=== PATIENT | male | born 1965 | race Hispanic/Latino ===

== ENCOUNTER 2021-04-29 09:49 | Emergency (ER) | payer OTHER ==
[~2021-04-29] VITALS: Ht 167.6 cm; Wt 104.3 kg
[~2021-04-29 09:49] MED LIST: ACET1TAB25 PO
[2021-04-29] MEDS ORDERED: MORPHINE 2 MG SYG IVP ONE (10:30)
[2021-04-29 10:45] LABS: BASOPHILS % (AUTO) 0.8 % (0.0-5.0); EOSINOPHILS % (AUTO) 3.7 % (0.0-8.0); HEMATOCRIT 30.6 % (42-54); LYMPHOCYTES % (AUTO) 23.1 % (21.0-51.0); MEAN CORPUSCULAR HEMOGLOBIN 33.5 pg (27.0-33.0); MEAN CORPUSCULAR HGB CONC 34.6 g/dL (32.0-36.0); MEAN CORPUSCULAR VOLUME 96.8 fL (79-99); MONOCYTES % (AUTO) 17.7 % (3.0-13.0); NEUTROPHILS % (AUTO) 53.9 % (40.0-77.0); PLATELET COUNT (AUTO) 94 K/uL (130-400); RED BLOOD CELL COUNT(AUTO) 3.16 MIL/uL (4.50-6.20); RED CELL DISTRIBUTION WIDTH 14.1 % (11.0-15.5); WHITE BLOOD COUNT (AUTO) 5.2 K/uL (4.8-10.8)
[2021-04-29 10:58] LABS: ALBUMIN 1.6 g/dL (3.5-5.0); BILIRUBIN,TOTAL 1.4 mg/dL (0.2-1.0); CREATININE 0.9 mg/dL (0.5-1.5); POTASSIUM 4.8 mmol/L (3.5-5.1); TOTAL PROTEIN, SERUM 7.1 g/dL (6.0-8.3)
[2021-04-29 11:25] LABS: APPEARANCE,URINE Clear (CLEAR); BILIRUBIN,URINE Small (NEGATIVE); COLOR,URINE Dark Yellow (YELLOW); GLUCOSE, URINE (UA) Negative (NEGATIVE); KETONES,URINE Trace mg/dL (NEGATIVE); LEUKOCYTE ESTERASE ,URINE Trace (NEGATIVE); NITRATE,URINE Negative (NEGATIVE); OCCULT BLOOD,URINE Negative (NEGATIVE); PH,URINE 6.5 (5.0-8.0); PROTEIN,URINE Trace mg/dL (NEGATIVE)
[2021-04-29 11:35] LABS: BACTERIA,URINE Rare /HPF (None Seen); MUCUS,URINE Rare LPF (None Seen); RBC,URINE 0-1 /HPF (0-1); SQUAMOUS EPITHELIAL CELL,UR Rare /HPF (0-2); WBC,URINE 0-1 /HPF (0-1)
[2021-04-29] MEDS ORDERED: IOHEXOL-350 75 ML VIAL IV ONE (11:45)
[2021-04-29] MEDS ORDERED: METR-172 PO (13:20)
[2021-04-29] MEDS ORDERED: CIPR-278 PO (13:20)
[2021-04-29] MEDS ORDERED: HYOS0.124 SL (13:21)
[2021-04-29] MEDS ORDERED: METRONIDAZOLE 500 MG TABLET PO SCH (13:30)
[2021-04-29] MEDS ORDERED: LEVOFLOXACIN 500 MG TABLET PO SCH (13:30)
[2021-04-29 14:05] VITALS: BP 135/75
== END 2021-04-29 15:13 | disposition home or self-care (01) ==
LOC: EDH 09:49
DX: K57.30 Diverticulosis of large intestine without perforation or abscess without bleeding (principal); R18.8 Other ascites; I10 Essential (primary) hypertension; Z98.890 Other specified postprocedural states
CPT/HCPCS: 36415; 74177; 80053; 81001; 83690; 84484; 85025; 93005; 96374; 99285; Q9967

== ENCOUNTER 2021-05-03 09:13 | Emergency (ER) | payer OTHER ==
[~2021-05-03] VITALS: Ht 165.1 cm; Wt 97.5 kg
[~2021-05-03 09:13] MED LIST changes: +CIPR-278 PO; +HYOS0.124 SL; +METR-172 PO
[2021-05-03 09:40] LABS: HEMATOCRIT 31.5 % (42-54); MEAN CORPUSCULAR HEMOGLOBIN 33.2 pg (27.0-33.0); MEAN CORPUSCULAR HGB CONC 34.6 g/dL (32.0-36.0); PLATELET COUNT (AUTO) 114 K/uL (130-400); RED BLOOD CELL COUNT(AUTO) 3.28 MIL/uL (4.50-6.20); RED CELL DISTRIBUTION WIDTH 13.8 % (11.0-15.5)
[2021-05-03 09:48] LABS: CREATININE 0.9 mg/dL (0.5-1.5)
[2021-05-03 09:53] LABS: ALBUMIN 1.7 g/dL (3.5-5.0); BILIRUBIN,TOTAL 2.4 mg/dL (0.2-1.0); TOTAL PROTEIN, SERUM 7.7 g/dL (6.0-8.3)
[2021-05-03] MEDS ORDERED: HYDROCODONE/ACETAMINOPHEN 10/325 MG TAB PO ONE (10:00)
[2021-05-03 10:02] LABS: APPEARANCE,URINE CLEAR (CLEAR); BILIRUBIN,URINE MODERATE (NEGATIVE); GLUCOSE, URINE (UA) NEGATIVE (NEGATIVE); KETONES,URINE 5 mg/dL (NEGATIVE); LEUKOCYTE ESTERASE ,URINE NEGATIVE (NEGATIVE); NITRATE,URINE POSITIVE (NEGATIVE); OCCULT BLOOD,URINE NEGATIVE (NEGATIVE); PROTEIN,URINE 30 mg/dL (NEGATIVE)
[2021-05-03 10:04] LABS: COLOR,URINE ORANGE (YELLOW)
[2021-05-03] MEDS ORDERED: ALBUMIN (HUMAN) 25% 200 ML IV ONE (10:05)
[2021-05-03 10:11] LABS: INR 1.53 (0.85-1.15)
[2021-05-03 10:11] LABS: BACTERIA,URINE Rare /HPF (None Seen); MUCUS,URINE Moderate LPF (None Seen); RBC,URINE 0-1 /HPF (0-1); SQUAMOUS EPITHELIAL CELL,UR Rare /HPF (0-2); WBC,URINE 0-1 /HPF (0-1)
[2021-05-03 10:12] LABS: PARTIAL THROMBOPLASTIN TIME 33.9 SEC (26.3-35.5)
[2021-05-03 10:17] LABS: BASOPHILS % (MANUAL) 2 % (0-2); EOSINOPHILS % (MANUAL) 3 % (1-6); LYMPHOCYTES % (MANUAL) 27 % (22-44); MAN.DIFF COMMENT-IMPRESSION MANUAL DIFFERENTIAL; MONOCYTES % (MANUAL) 10 % (2-9); PLATELET MORPHOLOGY COMMENT SLIGHTLY DECREASED; SEGMENTED NEUTROPHILS % 58 % (40-70)
[2021-05-03 12:37] VITALS: BP 114/69
[2021-05-03 13:59] LABS: APPEARANCE BODY FLUID CLEAR (CLEAR); BODY FLUID RBC 124 /cu. mm.; BODY FLUID WBC 134 /cu. mm.; COLOR,BODY FLUID YELLOW (LT YELLOW); SPECIMENTYPE,BODY FLUID ASCITES; TOTAL VOLUME,BODY FLUID 6200 mL
[2021-05-03 14:04] LABS: BF LYMPHOCYTE 28 %; BF MESOTHELIAL 55 %; BF MONOCYTE 13 %
== END 2021-05-03 12:36 | disposition home or self-care (01) ==
LOC: EDH 09:13
DX: R18.8 Other ascites (principal); K74.60 Unspecified cirrhosis of liver; I10 Essential (primary) hypertension; E11.9 Type 2 diabetes mellitus without complications
CPT/HCPCS: 36415; 49083; 71045; 80053; 81001; 85025; 85610; 85730; 87071; 87088; 87205; 89051; 96365; 99285; C1729; P9046

== ENCOUNTER 2021-05-07 03:44 | Emergency (ER) | payer OTHER ==
[~2021-05-07] VITALS: Ht 165.1 cm; Wt 95.3 kg
[2021-05-07] MEDS ORDERED: HYDROCODONE/ACETAMINOPHEN 10/325 MG TAB PO ONE (04:00)
[2021-05-07 04:35] LABS: BASOPHILS % (AUTO) 0.8 % (0.0-5.0); EOSINOPHILS % (AUTO) 4.8 % (0.0-8.0); HEMATOCRIT 29.5 % (42-54); LYMPHOCYTES % (AUTO) 25.7 % (21.0-51.0); MEAN CORPUSCULAR HEMOGLOBIN 33.8 pg (27.0-33.0); MEAN CORPUSCULAR HGB CONC 34.9 g/dL (32.0-36.0); MEAN CORPUSCULAR VOLUME 96.7 fL (79-99); MONOCYTES % (AUTO) 15.9 % (3.0-13.0); NEUTROPHILS % (AUTO) 52.2 % (40.0-77.0); PLATELET COUNT (AUTO) 99 K/uL (130-400); RED BLOOD CELL COUNT(AUTO) 3.05 MIL/uL (4.50-6.20); RED CELL DISTRIBUTION WIDTH 14.2 % (11.0-15.5); WHITE BLOOD COUNT (AUTO) 6.5 K/uL (4.8-10.8)
[2021-05-07 04:46] LABS: CARBON DIOXIDE 22 mmol/L (21-32); CHLORIDE 106 mmol/L (101-111); GLOMERULAR FILTR. RATE CALC 83 mL/min (>60); GLUCOSE,RANDOM 134 mg/dL (70-105); POTASSIUM 3.4 mmol/L (3.5-5.1); SODIUM SERUM 137 mmol/L (136-145); UREA NITROGEN, BLOOD 11 mg/dL (7-18)
[2021-05-07 04:50] LABS: ALANINE AMINOTRANSFERASE 33 U/L (12-78); ALBUMIN 1.9 g/dL (3.5-5.0); ALCOHOL, BLOOD < 3 mg/dL (0-10); ASPARTATE AMINOTRANSFERASE 54 U/L (10-37); BILIRUBIN,TOTAL 2.4 mg/dL (0.2-1.0); TOTAL PROTEIN, SERUM 6.9 g/dL (6.0-8.3)
[2021-05-07] MEDS ORDERED: FURO-152 PO (05:40)
[2021-05-07] MEDS ORDERED: ACET1TAB25 PO (05:40)
[2021-05-07] MEDS ORDERED: MORPHINE 4 MG SYG IM ONE (06:00)
[2021-05-07 07:50] VITALS: BP 103/68
== END 2021-05-07 07:56 | disposition home or self-care (01) ==
LOC: EDH 03:44
DX: R18.8 Other ascites (principal); K74.60 Unspecified cirrhosis of liver; I10 Essential (primary) hypertension
CPT/HCPCS: 36415; 80053; 85025

== ENCOUNTER 2021-05-09 08:43 | Emergency (ER) | payer OTHER ==
[~2021-05-09] VITALS: Ht 165.1 cm; Wt 97.5 kg
[~2021-05-09 08:43] MED LIST changes: +FURO-152 PO
[2021-05-09 09:41] LABS: BASOPHILS % (AUTO) 0.2 % (0.0-5.0); EOSINOPHILS % (AUTO) 0.7 % (0.0-8.0); HEMATOCRIT 29.7 % (42-54); LYMPHOCYTES % (AUTO) 7.6 % (21.0-51.0); MEAN CORPUSCULAR HEMOGLOBIN 33.2 pg (27.0-33.0); MEAN CORPUSCULAR HGB CONC 33.7 g/dL (32.0-36.0); MEAN CORPUSCULAR VOLUME 98.7 fL (79-99); MONOCYTES % (AUTO) 4.7 % (3.0-13.0); NEUTROPHILS % (AUTO) 86.3 % (40.0-77.0); PLATELET COUNT (AUTO) 86 K/uL (130-400); RED BLOOD CELL COUNT(AUTO) 3.01 MIL/uL (4.50-6.20); RED CELL DISTRIBUTION WIDTH 14.3 % (11.0-15.5); WHITE BLOOD COUNT (AUTO) 9.5 K/uL (4.8-10.8)
[2021-05-09 09:58] LABS: ALBUMIN 1.9 g/dL (3.5-5.0); BILIRUBIN,TOTAL 3.5 mg/dL (0.2-1.0); CREATININE 1.3 mg/dL (0.5-1.5); POTASSIUM 3.5 mmol/L (3.5-5.1); TOTAL PROTEIN, SERUM 6.9 g/dL (6.0-8.3)
[2021-05-09 11:30] VITALS: BP 110/52
== END 2021-05-09 11:47 | disposition home or self-care (01) ==
LOC: EDH 08:43
DX: R18.8 Other ascites (principal); I10 Essential (primary) hypertension; Z79.899 Other long term (current) drug therapy
CPT/HCPCS: 36415; 49082; 76705; 80053; 85025

== ENCOUNTER 2021-05-17 11:30 | Emergency (ER) | payer OTHER ==
[~2021-05-17] VITALS: Ht 165.1 cm; Wt 108.9 kg
[2021-05-17 12:15] LABS: BASOPHILS % (AUTO) 0.8 % (0.0-5.0); EOSINOPHILS % (AUTO) 5.3 % (0.0-8.0); HEMATOCRIT 29.3 % (42-54); LYMPHOCYTES % (AUTO) 25.8 % (21.0-51.0); MEAN CORPUSCULAR HEMOGLOBIN 33.1 pg (27.0-33.0); MEAN CORPUSCULAR HGB CONC 34.5 g/dL (32.0-36.0); MEAN CORPUSCULAR VOLUME 96.1 fL (79-99); MONOCYTES % (AUTO) 10.5 % (3.0-13.0); NEUTROPHILS % (AUTO) 56.8 % (40.0-77.0); PLATELET COUNT (AUTO) 91 K/uL (130-400); RED BLOOD CELL COUNT(AUTO) 3.05 MIL/uL (4.50-6.20); RED CELL DISTRIBUTION WIDTH 13.7 % (11.0-15.5); WHITE BLOOD COUNT (AUTO) 5.3 K/uL (4.8-10.8)
[2021-05-17] MEDS ORDERED: DICYCLOMINE 20MG (10MG/ML) AMP IM SCH (12:24)
[2021-05-17] MEDS ORDERED: HYDROCODONE/ACETAMINOPHEN 10/325 MG TAB PO SCH (12:30)
[2021-05-17 12:31] LABS: ALBUMIN 1.8 g/dL (3.5-5.0); BILIRUBIN,TOTAL 2.6 mg/dL (0.2-1.0); CREATININE 1.9 mg/dL (0.5-1.5); POTASSIUM 3.1 mmol/L (3.5-5.1); TOTAL PROTEIN, SERUM 7.5 g/dL (6.0-8.3)
[2021-05-17 12:47] LABS: INR 1.48 (0.85-1.15); PROTHROMBIN TIME 15.6 SEC (9.6-11.6)
[2021-05-17 12:48] LABS: PARTIAL THROMBOPLASTIN TIME 34.2 SEC (26.3-35.5)
[2021-05-17] MEDS ORDERED: POTASSIUM BICARB/CIT AC 25 MEQ TABLET.EFF PO SCH (13:00)
[2021-05-17 15:22] VITALS: BP 125/70
== END 2021-05-17 15:30 | disposition home or self-care (01) ==
LOC: EDH 11:30
DX: R18.8 Other ascites (principal); K74.60 Unspecified cirrhosis of liver; E87.6 Hypokalemia; D64.9 Anemia, unspecified; E11.9 Type 2 diabetes mellitus without complications; I10 Essential (primary) hypertension; Z79.899 Other long term (current) drug therapy
CPT/HCPCS: 36415; 49083; 80053; 83690; 84484; 85025; 85610; 85730; 93005; 96372; 99285; C1729; J0500

== ENCOUNTER 2021-05-28 08:15 | Emergency (ER) | payer OTHER ==
[~2021-05-28] VITALS: Ht 165.1 cm; Wt 90.7 kg
[2021-05-28] MEDS ORDERED: ONDANSETRON 4MG INJ IVP SCH (08:30)
[2021-05-28] MEDS ORDERED: MORPHINE 2 MG SYG IVP SCH (08:30)
[2021-05-28] MEDS ORDERED: 0.9%NACL 1000ML 500 ML IV SCH (08:30)
[2021-05-28 08:39] LABS: BASOPHILS % (AUTO) 1.2 % (0.0-5.0); EOSINOPHILS % (AUTO) 7.2 % (0.0-8.0); HEMATOCRIT 30.3 % (42-54); LYMPHOCYTES % (AUTO) 32.3 % (21.0-51.0); MEAN CORPUSCULAR HEMOGLOBIN 33.4 pg (27.0-33.0); MEAN CORPUSCULAR VOLUME 98.4 fL (79-99); MONOCYTES % (AUTO) 15.8 % (3.0-13.0); PLATELET COUNT (AUTO) 108 K/uL (130-400); RED BLOOD CELL COUNT(AUTO) 3.08 MIL/uL (4.50-6.20); RED CELL DISTRIBUTION WIDTH 14.6 % (11.0-15.5); WHITE BLOOD COUNT (AUTO) 5.7 K/uL (4.8-10.8)
[2021-05-28] MEDS ORDERED: MORPHINE 4 MG SYG ONE (08:40)
[2021-05-28 08:45] LABS: INR 1.36 (0.85-1.15); PROTHROMBIN TIME 14.4 SEC (9.6-11.6)
[2021-05-28 08:47] LABS: ALBUMIN 1.8 g/dL (3.5-5.0); BILIRUBIN,TOTAL 2.2 mg/dL (0.2-1.0); CREATININE 1.3 mg/dL (0.5-1.5); TOTAL PROTEIN, SERUM 8.3 g/dL (6.0-8.3)
[2021-05-28 10:02] LABS: APPEARANCE,URINE Clear (CLEAR); BILIRUBIN,URINE Small (NEGATIVE); COLOR,URINE Dark Yellow (YELLOW); GLUCOSE, URINE (UA) Negative (NEGATIVE); KETONES,URINE Negative (NEGATIVE); LEUKOCYTE ESTERASE ,URINE Trace (NEGATIVE); NITRATE,URINE Negative (NEGATIVE); OCCULT BLOOD,URINE Negative (NEGATIVE); PH,URINE 6.5 (5.0-8.0); PROTEIN,URINE POS 1+ mg/dL (NEGATIVE)
[2021-05-28] MEDS ORDERED: ALBUMIN (HUMAN) 25% 200 ML IV ONE (10:23)
[2021-05-28 10:34] LABS: BACTERIA,URINE Few /HPF (None Seen); RBC,URINE 0-1 /HPF (0-1); SQUAMOUS EPITHELIAL CELL,UR Rare /HPF (0-2)
[2021-05-28 11:40] VITALS: BP 106/70
[2021-05-28 14:11] LABS: APPEARANCE BODY FLUID CLEAR (CLEAR); COLOR,BODY FLUID YELLOW (LT YELLOW); SPECIMENTYPE,BODY FLUID ASCITES; TOTAL VOLUME,BODY FLUID 5500 mL
[2021-05-28 14:12] LABS: BODY FLUID RBC 158 /cu. mm.; BODY FLUID WBC 194 /cu. mm.
[2021-05-28 14:19] LABS: BF LYMPHOCYTE 91 %; BF MONOCYTE 5 %
== END 2021-05-28 12:54 | disposition home or self-care (01) ==
LOC: EDH 08:15
DX: R18.8 Other ascites (principal); K74.60 Unspecified cirrhosis of liver; I10 Essential (primary) hypertension; E11.9 Type 2 diabetes mellitus without complications; Z79.899 Other long term (current) drug therapy
CPT/HCPCS: 36415; 49083; 80053; 81001; 82150; 84484; 85025; 85610; 87071; 87205; 89051; 93005; 96361 ×2; 96365; 96375; 99285; C1729; J2270; J2405; J7030; P9046

== ENCOUNTER 2021-06-21 09:37 | Emergency (ER) | payer OTHER ==
[~2021-06-21] VITALS: Ht 165.1 cm; Wt 80.7 kg
[2021-06-21 10:38] LABS: APPEARANCE,URINE Clear (CLEAR); BILIRUBIN,URINE Small (NEGATIVE); COLOR,URINE Dark Yellow (YELLOW); GLUCOSE, URINE (UA) Negative (NEGATIVE); KETONES,URINE Trace mg/dL (NEGATIVE); LEUKOCYTE ESTERASE ,URINE Trace (NEGATIVE); NITRATE,URINE Negative (NEGATIVE); OCCULT BLOOD,URINE Negative (NEGATIVE); PROTEIN,URINE Trace mg/dL (NEGATIVE)
[2021-06-21 10:45] LABS: BACTERIA,URINE Few /HPF (None Seen); RBC,URINE 0-1 /HPF (0-1); SQUAMOUS EPITHELIAL CELL,UR Rare /HPF (0-2)
[2021-06-21 10:46] LABS: AMPHET/METH SCREEN,URINE NEGATIVE (NEGATIVE); BARBITURATE SCREEN, URINE NEGATIVE (NEGATIVE); BENZODIAZEPINES SCREEN,URINE NEGATIVE (NEGATIVE); CANNABINOID SCREEN,URINE NEGATIVE (NEGATIVE); COCAINE SCREEN,URINE NEGATIVE (NEGATIVE); OPIATE SCREEN,URINE NEGATIVE (NEGATIVE); PHENCYCLIDINE SCREEN,URINE NEGATIVE (NEGATIVE)
[2021-06-21 10:55] LABS: BASOPHILS % (AUTO) 0.8 % (0.0-5.0); EOSINOPHILS % (AUTO) 9.7 % (0.0-8.0); HEMATOCRIT 27.6 % (42-54); LYMPHOCYTES % (AUTO) 19.2 % (21.0-51.0); MEAN CORPUSCULAR HEMOGLOBIN 33.3 pg (27.0-33.0); MEAN CORPUSCULAR HGB CONC 34.1 g/dL (32.0-36.0); MEAN CORPUSCULAR VOLUME 97.9 fL (79-99); MONOCYTES % (AUTO) 12.7 % (3.0-13.0); NEUTROPHILS % (AUTO) 57.2 % (40.0-77.0); PLATELET COUNT (AUTO) 70 K/uL (130-400); RED BLOOD CELL COUNT(AUTO) 2.82 MIL/uL (4.50-6.20); RED CELL DISTRIBUTION WIDTH 15.4 % (11.0-15.5)
[2021-06-21] MEDS ORDERED: ORPHENADRINE CITRATE 30 MG/ML ML IV ONE (11:00)
[2021-06-21] MEDS ORDERED: KETOROLAC 30MG VIAL (30MG/ML) IV ONE (11:00)
[2021-06-21] MEDS ORDERED: 0.9%NACL 1000ML 1,000 ML IV ONE (11:00)
[2021-06-21] MEDS ORDERED: ONDANSETRON 4MG INJ IVP ONE (11:00)
[2021-06-21 11:18] LABS: POTASSIUM 3.4 mmol/L (3.5-5.1)
[2021-06-21 11:22] LABS: ALBUMIN 2.2 g/dL (3.5-5.0); BILIRUBIN,TOTAL 2.1 mg/dL (0.2-1.0); TOTAL PROTEIN, SERUM 7.7 g/dL (6.0-8.3)
[2021-06-21] MEDS ORDERED: ORPH-43 PO (12:45)
[2021-06-21] MEDS ORDERED: BENZ-39 PO (12:45)
[2021-06-21] MEDS ORDERED: MELO7.5T12 PO (12:45)
[2021-06-21] MEDS ORDERED: ACETAMINOPHEN 500 MG TABLET PO ONE (13:00)
[2021-06-21] MEDS ORDERED: MAG/ALUM/SIMETH 30 ML UDCUP PO ONE (13:00)
[2021-06-21] MEDS ORDERED: LIDOCAINE HCL 2% VISCOUS 15 ML UDCUP PO ONE (13:00)
[2021-06-21 13:31] VITALS: BP 138/83
== END 2021-06-21 13:41 | disposition home or self-care (01) ==
LOC: EDH 09:37
DX: S39.012A Strain of muscle, fascia and tendon of lower back, initial encounter (principal); J11.1 Influenza due to unidentified influenza virus with other respiratory manifestations; E86.9 Volume depletion, unspecified; R18.8 Other ascites; Z20.822 Contact with and (suspected) exposure to COVID-19; E11.9 Type 2 diabetes mellitus without complications; I10 Essential (primary) hypertension; Z79.1 Long term (current) use of non-steroidal anti-inflammatories (NSAID); Z79.899 Other long term (current) drug therapy; X58.XXXA Exposure to other specified factors, initial encounter; Y93.89 Activity, other specified; Y92.89 Other specified places as the place of occurrence of the external cause; Y99.8 Other external cause status
CPT/HCPCS: 36415; 71045; 74176; 80053; 80305; 81001; 82140; 83605; 83690; 84484; 85025; 87088; 87635; 87804 ×2; 87880; 93005; 96361; 96374; 96375; 99285; C9803; J1885; J2360; J2405; J7030

== ENCOUNTER 2021-07-01 10:39 | Emergency (ER) | payer OTHER ==
[~2021-07-01] VITALS: Ht 167.6 cm; Wt 81.6 kg
[~2021-07-01 10:39] MED LIST changes: +BENZ-39 PO; +MELO7.5T12 PO; +ORPH-43 PO
[2021-07-01 10:41] VITALS: BP 160/93
[2021-07-01] MEDS ORDERED: ALBUMIN (HUMAN) 25% 200 ML IV ONE ×2 (11:00→11:15)
[2021-07-01] MEDS ORDERED: HYDROCODONE/ACETAMINOPHEN 5/325 MG TAB PO ONE (11:00)
[2021-07-01 11:01] LABS: BASOPHILS % (AUTO) 0.8 % (0.0-5.0); EOSINOPHILS % (AUTO) 7.4 % (0.0-8.0); MEAN CORPUSCULAR HEMOGLOBIN 33.6 pg (27.0-33.0); MEAN CORPUSCULAR HGB CONC 34.4 g/dL (32.0-36.0); MEAN CORPUSCULAR VOLUME 97.5 fL (79-99); MONOCYTES % (AUTO) 18.5 % (3.0-13.0); NEUTROPHILS % (AUTO) 49.9 % (40.0-77.0); PLATELET COUNT (AUTO) 61 K/uL (130-400); RED BLOOD CELL COUNT(AUTO) 2.77 MIL/uL (4.50-6.20); RED CELL DISTRIBUTION WIDTH 15.9 % (11.0-15.5); WHITE BLOOD COUNT (AUTO) 2.4 K/uL (4.8-10.8)
[2021-07-01 11:10] LABS: CREATININE 0.8 mg/dL (0.5-1.5); POTASSIUM 3.7 mmol/L (3.5-5.1)
[2021-07-01 11:14] LABS: ALBUMIN 2.1 g/dL (3.5-5.0); BILIRUBIN,TOTAL 1.3 mg/dL (0.2-1.0); TOTAL PROTEIN, SERUM 7.8 g/dL (6.0-8.3)
[2021-07-01 11:35] LABS: INR 1.47 (0.85-1.15); PROTHROMBIN TIME 15.5 SEC (9.6-11.6)
[2021-07-01 11:56] LABS: BASOPHILS % (MANUAL) 1 % (0-2); EOSINOPHILS % (MANUAL) 6 % (1-6); LYMPHOCYTES % (MANUAL) 19 % (22-44); MAN.DIFF COMMENT-IMPRESSION MANUAL DIFFERENTIAL; MONOCYTES % (MANUAL) 18 % (2-9); PLATELET MORPHOLOGY COMMENT DECREASED; SEGMENTED NEUTROPHILS % 56 % (40-70)
[2021-07-01] MEDS ORDERED: ACET1TAB25 PO (13:13)
[2021-07-01] MEDS ORDERED: FURO-152 PO (13:13)
[2021-07-01 13:51] LABS: APPEARANCE BODY FLUID CLEAR (CLEAR); BODY FLUID WBC 72 /cu. mm.; COLOR,BODY FLUID YELLOW (LT YELLOW); SPECIMENTYPE,BODY FLUID ASCITES; TOTAL VOLUME,BODY FLUID 6500 mL
[2021-07-01 13:52] LABS: BODY FLUID RBC 267 /cu. mm.
[2021-07-01 14:14] LABS: BF LYMPHOCYTE 27 %; BF MESOTHELIAL 69 %; BF MONOCYTE 4 %
== END 2021-07-01 13:29 | disposition home or self-care (01) ==
LOC: EDH 10:39
DX: R18.8 Other ascites (principal); K74.60 Unspecified cirrhosis of liver; E11.9 Type 2 diabetes mellitus without complications; I10 Essential (primary) hypertension; Z79.1 Long term (current) use of non-steroidal anti-inflammatories (NSAID); Z79.899 Other long term (current) drug therapy
CPT/HCPCS: 36415; 49083; 80053; 85025; 85610; 87071; 87205; 89051; 96365; 99285; C1729; P9046